=== PATIENT | female | born 1995 | race Caucasian/White ===

== ENCOUNTER → 2016-08-11 | Day surgery (SDC) | payer BC ==
[~2016-08-11] MED LIST: IBUP-103 PO
--- NOTE | 2016-08-11 13:38 | DIAGNOSTIC IMAGING REPORT ---
Ultrasound-guided fine-needle aspiration of the thyroid GUIDANCE NEEDLE PLACEMENT CLINICAL HISTORY: THYROID NODULE thyroid mass TECHNIQUE: Fine-needle aspiration under ultrasound guidance COMPARISON STUDY: 12/26/2015 FINDINGS: Dominant mass in the right thyroid was localized. This is followed by 2 passes with a 25-gauge needle. There were no complications. Pathology indicated adequate specimen for diagnosis. IMPRESSION: Successful fine-needle aspiration of dominant right thyroid mass Electronically signed by: Dante Ribera M.D. 08/11/2016 1:37 PM Dictated Date/Time: 08/11/2016 1:35 PM
== END | disposition home or self-care (01) ==
LOC: C.ACU 12:35
PROVIDERS: ATTEND Internal Medicine Endocrinology, Diabetes & Metabolism
DX: C73 Malignant neoplasm of thyroid gland (principal)

== ENCOUNTER 2016-09-22 07:06 | Inpatient (IN) | payer BC ==
[2016-09-07 08:22] VITALS: BMI 24.0
--- NOTE | 2016-09-07 08:51 | PAT Medication Instructions ---
Service Date September 07, 2016. Current Home Medication List Ibuprofen Tab (Advil), 200-400 MG PO PRN Medication Instructions For Your Scheduled Surgery - Hold the following medications the morning of surgery: Ibuprofen Tab (Advil), 200-400 MG PO PRN Nothing to eat or drink after midnight If you have any questions please call us at [phone] or [phone] or [phone]
[2016-09-22] VITALS (8 sets, daily range): BP systolic 104–120; BP diastolic 65–77; PULSE 80–101; TEMP 36.5–37.1; O2SAT 96–99; Ht 180.3 cm; Wt 79.3 kg
[~2016-09-22] VITALS: Ht 180.3 cm; Wt 79.3 kg
[~2016-09-22 07:06] MED LIST changes: +CEFAZOLIN 2000 MG/60 ML D5W IV SCH; +LACTATED RINGER'S 1000ML 1,000 ML IV SCH
[2016-09-22] MEDS ORDERED: DEXAMETHASONE SOD INJ 4 MG/ML VIAL ONE (07:50)
[2016-09-22] MEDS ORDERED: LIDOCAINE HCL 2% 2 ML VIAL (20MG/ML) ONE (07:50)
[2016-09-22] MEDS ORDERED: ONDANSETRON INJ 2 MG/ML 2 ML VIAL ONE (07:50)
[2016-09-22] MEDS ORDERED: MIDAZOLAM HCL 1 MG/ML 2ML VIAL ONE (07:50)
[2016-09-22] MEDS ORDERED: PROPOFOL IV EMULSION 10 MG/ML 20 ML VIAL IV ONE (07:50)
[2016-09-22] MEDS ORDERED: FENTANYL CITRATE INJ 50 MCG/1 ML 2 ML VIAL ONE ×3 (07:51→10:49)
--- NOTE | 2016-09-22 08:45 | History & Physical Bridge Note ---
H&P Re-Evaluation Bridge Note: I have examined the patient, reviewed the History & Physical and in the interval since the performance of the History & Physical I have noted the following changes of clinical significance: No changes noted
[2016-09-22] MEDS ORDERED: THROMBIN 5000 UNITS KIT ONE (09:02)
[2016-09-22] MEDS ORDERED: BACITRACIN OINT 15 GM TUBE ONE (09:02)
[2016-09-22] MEDS ORDERED: LIDOCAINE/EPINEPHRINE 1% 20 ML VIAL ONE (09:02)
[2016-09-22] MEDS ORDERED: SURGICEL ABSORB HEMOSTAT 2IN X 14IN TOP ONE (10:03)
[2016-09-22] MEDS ORDERED: SUCCINYLCHOLINE CHLORIDE 20 MG/ML 10 ML VIAL IV ONE (10:47)
[2016-09-22] MEDS ORDERED: LACTATED RINGER'S 1000ML 1,000 ML IV SCH (12:42)
--- NOTE | 2016-09-22 12:42 | [facility] Operative Report ---
Operative Report Operative Date September 22, 2016. Pre-Operative Diagnosis Papillary Thyroid Cancer, Goiter Post-Operative Diagnosis SAME Procedure(s) Performed TOTAL THYROIDECTOMY Surgeon Dr Chan Quiñonez Oxyacetylene Welder Surgeon(s) Gilma Vieyra PA-C Estimated Blood Loss 100ml Findings VERY LARGE ~6CM RIGHT THYROID MASS MAINLY INVOLVING THE SUPERIOR ASPECT OF THE GLAND Specimens A: Right Thyroid Lobe, single stitch-Isthmus, double stitch-Superior Pole B. Left thyroid lobe, double stitch superior pole, single stitch isthmus I attest to the content of the Intraoperative Record and any orders documented therein. Any exceptions are noted below.
[2016-09-22] MEDS ORDERED: ONDANSETRON INJ 2 MG/ML 2 ML VIAL IV PRN ×2 (12:45→13:15)
[2016-09-22] MEDS ORDERED: HYDROCODONE/ACETAMOPHEN 5/325MG TAB PO PRN (12:45)
[2016-09-22] MEDS ORDERED: FLUMAZENIL 0.1 MG/1 ML 10 ML VIAL IV PRN (13:15)
[2016-09-22] MEDS ORDERED: EpHEDrine SULFATE INJ 50 MG/ML AMP IV PRN (13:15)
[2016-09-22] MEDS ORDERED: ATROPINE SULFATE 0.1 MG/ML 5ML SYR IV PRN (13:15)
[2016-09-22] MEDS ORDERED: NALOXONE HCL 0.4 MG/1 ML VIAL/CARP IV PRN (13:15)
[2016-09-22] MEDS ORDERED: PROMETHAZINE HCL INJ 12.5 MG in SODIUM CHLORIDE 0.9% 50ML 50 ML IV PRN (13:15)
[2016-09-22] MEDS: HYDROmorphone INJ 1 MG/ML SYR IV PRN ×3 (13:31→13:42)
--- NOTE | 2016-09-22 14:37 | Anesthesiology Progress Note ---
Anesthesia Post Op Note Date & Time September 22, 2016 at 14:37 Vital Signs Pain Intensity: 3 Vital Signs Past 12 Hours Date Time Temp Pulse Resp B/P Pulse Ox O2 Delivery O2 Flow Rate FiO2 09/22/16 14:22 93 16 95 09/22/16 14:22 93 16 09/22/16 14:21 130/74 09/22/16 14:17 116 16 09/22/16 14:17 116 16 96 09/22/16 14:16 133/75 09/22/16 14:12 99 17 96 09/22/16 14:12 99 17 09/22/16 14:11 130/74 09/22/16 14:07 102 16 95 09/22/16 14:07 101 16 09/22/16 14:06 130/74 09/22/16 14:03 99 17 09/22/16 14:03 101 17 95 09/22/16 14:01 135/77 09/22/16 13:58 99 17 95 09/22/16 13:58 100 17 09/22/16 13:57 36.7 09/22/16 13:57 99 18 95 09/22/16 13:57 100 18 09/22/16 13:56 131/73 09/22/16 13:52 103 19 95 09/22/16 13:52 102 19 09/22/16 13:51 135/74 09/22/16 13:47 112 25 96 09/22/16 13:47 114 25 09/22/16 13:46 134/76 09/22/16 13:42 114 17 96 09/22/16 13:42 115 17 09/22/16 13:41 138/76 09/22/16 13:37 105 19 09/22/16 13:37 105 19 99 09/22/16 13:36 134/78 09/22/16 13:32 114 16 09/22/16 13:32 114 16 99 09/22/16 13:31 134/72 09/22/16 13:27 124 20 09/22/16 13:27 122 20 99 09/22/16 13:26 133/74 09/22/16 13:22 118 16 09/22/16 13:22 118 16 99 09/22/16 13:21 137/73 09/22/16 13:17 116 19 09/22/16 13:17 117 19 99 09/22/16 13:16 129/70 09/22/16 13:13 124/69 09/22/16 13:12 131 22 09/22/16 13:12 36.9 120 14 127/69 99 Mask 10 09/22/16 13:12 130 22 99 09/22/16 07:44 36.7 81 16 111/69 99 Room Air Notes Mental Status: alert / awake / arousable, participated in evaluation Pt Amnestic to Procedure: Yes Nausea / Vomiting: adequately controlled Pain: adequately controlled Airway Patency, RR, SpO2: stable & adequate BP & HR: stable & adequate Hydration State: stable & adequate Anesthetic Complications: no major complications apparent
--- NOTE | 2016-09-22 16:02 | OPERATIVE REPORT ---
DATE OF OPERATION: 09/22/2016 PREOPERATIVE DIAGNOSIS: Right papillary thyroid carcinoma. POSTOPERATIVE DIAGNOSIS: Right papillary thyroid carcinoma. PROCEDURE: Total thyroidectomy. SURGEON: Dr. Quiñonez. WORKFORCE DEVELOPMENT SPECIALIST: Gilma Vieyra PA-C. ESTIMATED BLOOD LOSS: 100 mL. ANESTHESIA: General endotracheal with nerve integrity monitor endotracheal tube. FINDINGS: 1. Very large approximately 6-cm right upper pole thyroid mass consistent with papillary thyroid carcinoma. 2. 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 SPECIMENS: Right and left thyroid lobe sent separately for permanent pathological assessment. DRAINS: None. COMPLICATIONS: None. INDICATIONS FOR THE PROCEDURE: The patient is a 21-year-old female who has a large right thyroid nodule, for which she underwent fine needle aspiration biopsy with findings consistent with papillary thyroid carcinoma. On examination as well as on her ultrasound, there was no evidence of cervical lymphadenopathy. She presents for the above-mentioned procedure on inpatient elective basis. DESCRIPTION OF PROCEDURE: After informed consent had been obtained from the patient, the patient was wheeled to the operating room and placed on the operating table in the supine position. Monitors were placed. After induction of general endotracheal anesthesia with a nerve integrity monitor endotracheal tube, the patient's head and neck were gently extended and a marking pen was used to outline the planned 8 cm incision in a natural skin crease 2 fingerbreadths above the level of clavicles. A total of 3 mL of 1% lidocaine with 1:100,000 epinephrine was used to inject the skin and subcutaneous tissues overlying the planned incision site. The skin in the neck and chest were then prepped and draped in the usual sterile fashion. A #15 scalpel was then used to make an incision through the skin, subcutaneous tissue, and platysma. Subplatysmal flaps were raised superiorly to the level of the thyroid notch and inferiorly to the level of clavicles. The median raphe of the strap muscles was identified and divided using Bovie electrocautery. Of note, the strap muscles were asymmetric in that the trachea was quite deviated to the left hand side. Because of the enormity of the thyroid gland, the strap muscles were divided transversely using a Harmonic scalpel both on the right and the left side. The right side was first addressed. The middle thyroid vein as well as superior and inferior thyroid vascular pedicles were divided adjacent to the thyroid capsule using a Harmonic scalpel. Dissection was carried lateral to medial with care to identify and preserve the right recurrent laryngeal nerve as well as superior and inferior parathyroid candidates. Of note, the recurrent laryngeal nerve on the right hand side was quite small and densely adherent to the undersurface of the thyroid gland at the area of the mass. Also, the right superior laryngeal nerve appeared to be densely adherent to the superior aspect of the right thyroid mass. Care was taken to preserve both nerves. There was not much of an isthmus and it was decided to divide the thyroid gland at the isthmus using Harmonic scalpel. The orienting sutures were placed on the right thyroid lobectomy specimen, which was sent off for permanent pathologic assessment. The left side was then addressed in a similar fashion. On this side, the thyroid lobe was quite small with only a very small nodule on the superficial surface of the left inferior aspect. Care was taken to identify and preserve the left recurrent laryngeal nerve as well as superior and inferior parathyroid candidates. The left recurrent laryngeal nerve was larger than the right hand side. Both nerves stimulated to confirm their identification. Orienting sutures were placed on the left thyroid lobectomy specimen, which was sent off for permanent pathological assessment. The wound was then copiously irrigated and then suctioned. Bipolar electrocautery was used to achieve adequate hemostasis. Hemostasis was confirmed with a Valsalva maneuver. Small pieces of Surgicel followed by topical spray thrombin were then placed into the bilateral tracheoesophageal grooves for added hemostatic effect. The divided strap muscle was then reapproximated using several simple interrupted 3-0 Vicryl sutures. The strap muscles were then reapproximated in the midline using a simple running interlocked 3-0 Vicryl suture. The platysma was then closed with several deep 4-0 Monocryl sutures. The skin was then closed with a simple running subcuticular 5-0 Monocryl suture. The incision was cleansed and dried. Dermabond was applied to the incision. This marked the end of the case. The patient tolerated the procedure well. There were no apparent complications. The patient was extubated and transferred to recovery room in stable condition. I attest to the content of the Intraoperative Record and any orders documented therein. Any exceptio ns are noted below.
[2016-09-22 18:49] LABS: CALCIUM 8.7 mg/dl (8.5-10.1); MAGNESIUM 1.8 mg/dl (1.8-2.4); PHOSPHORUS 3.3 mg/dl (2.5-4.9)
[2016-09-22] MEDS ORDERED: NURSING DECISION MEDICATION ORDER SCH (22:00)
[2016-09-23 01:08] LABS: CALCIUM 8.4 mg/dl (8.5-10.1); MAGNESIUM 1.8 mg/dl (1.8-2.4); PHOSPHORUS 3.4 mg/dl (2.5-4.9)
[2016-09-23 04:00] VITALS: BP 106/69; PULSE 68; TEMP 36.7; O2SAT 97
[2016-09-23] MEDS ORDERED: LEVOTHYROXINE 125 MCG TAB PO SCH (06:00)
[2016-09-23] MEDS ORDERED: LEVOTHYROXINE 25 MCG TAB PO SCH (06:00)
[2016-09-23 06:51] LABS: CALCIUM 8.2 mg/dl (8.5-10.1)
[2016-09-23 07:17] VITALS: BP 101/65; PULSE 68; TEMP 37; O2SAT 95
[2016-09-23 07:35] LABS: PHOSPHORUS 4.7 mg/dl (2.5-4.9)
--- NOTE | 2016-09-23 07:41 | ENT PROGRESS NOTE ---
DATE: 09/23/2016 ENT PROGRESS NOTE The patient is postoperative day #1 status post total thyroidectomy for right papillary thyroid carcinoma. The patient denies any perioral or digital numbness or paresthesias. She denies any muscle cramps or spasms. She has been doing well postoperatively thus far. She is afebrile and her vital signs are stable. On examination, she has a normal voice. Her thyroidectomy incision is clean, dry and intact with Dermabond in place and no evidence of hematoma. LABORATORY EXAMINATION: Reveals calcium of 8.7 yesterday at 6:00 p.m. which decreased to 8.4 at midnight without a concomitant significant rise in phosphorus. Her albumin did lower and so therefore we felt the mildly low calcium may be due to hypoalbuminemia. She denies any symptoms of hypocalcemia. The patient has laboratory examinations at 6:00 a.m. that are still pending. If these show no significant drop in her calcium and then I would likely discharge her home later today without calcium or vitamin D supplementation.
--- NOTE | 2016-09-23 08:03 | Anesthesiology Progress Note ---
Anesthesia Post Op Note Date & Time September 23, 2016 at 08:03 Vital Signs Pain Intensity: 0.0 Vital Signs Past 12 Hours Date Time Temp Pulse Resp B/P Pulse Ox O2 Delivery O2 Flow Rate FiO2 09/23/16 07:17 37.0 68 16 101/65 95 Room Air 09/23/16 04:00 36.7 68 16 106/69 97 Room Air 09/22/16 23:40 36.7 85 16 104/65 99 Room Air Notes Mental Status: alert / awake / arousable, participated in evaluation Pt Amnestic to Procedure: Yes Nausea / Vomiting: adequately controlled Pain: adequately controlled Airway Patency, RR, SpO2: stable & adequate BP & HR: stable & adequate Hydration State: stable & adequate Anesthetic Complications: no major complications apparent
[2016-09-23] MEDS: CALCIUM 600MG + VIT D 400 IU TAB PO SCH ×2 (08:20→11:54)
[2016-09-23 12:05] VITALS: BP 110/70; PULSE 62; TEMP 37.1; O2SAT 98
[2016-09-23 12:40] LABS: CALCIUM 8.8 mg/dl (8.5-10.1); MAGNESIUM 2.2 mg/dl (1.8-2.4); PHOSPHORUS 3.7 mg/dl (2.5-4.9)
--- NOTE | 2016-09-23 12:54 | Discharge Instructions ---
Discharge Instructions Date of Service September 23, 2016. Admission Reason for Admission: Papillary Thyroid Carcinoma Discharge Discharge Diagnosis / Problem: SAME Discharge Goals Goal(s): Therapeutic intervention Activity Recommendations Activity Limitations: per Instructions/Follow-up section . Current Hospital Diet Patient's current hospital diet: Regular Diet Discharge Diet Recommended Diet: Regular Diet Procedures Procedures Performed: Total Thyroidectomy Pending Studies Studies pending at discharge: no Medical Emergencies . Who to Call and When: Medical Emergencies: If at any time you feel your situation is an emergency, please call 911 immediately. . Non-Emergent Contact Non-Emergency issues call your: Surgeon . . "Provider Documentation" section prepared by Chan Quiñonez. . VTE Core Measure Inpt VTE Proph given/why not?: SCD's
[2016-09-23 13:08] VITALS: BP 110/70; PULSE 62; TEMP 37.1; O2SAT 98
--- NOTE | 2016-09-23 15:56 | DISCHARGE SUMMARY ---
OTOLARYNGOLOGY, HEAD AND NECK SURGERY DISCHARGE SUMMARY HOSPITAL COURSE: The patient is a 21-year-old female with a large right thyroid nodule measuring approximately 6.5 cm, for which a fine needle aspiration biopsy unfortunately revealed papillary thyroid carcinoma. She underwent total thyroidectomy on 09/22/2016 when intraoperative findings of a very large right thyroid nodule with extension superiorly and primarily involving the upper lobe. She also had severe tracheal deviation to the left. She did well postoperatively with no voice or swallowing problems. She did have mild hypocalcemia, for which Os-Kade D was started and for which she should take Os-Kade D two pills by mouth twice daily for 1 week followed by 2 pills once daily for 1 week. She should call my office if she develops any numbness or tingling around her lips, fingers, or toes. She should call my office if she develops any involuntary muscle spasms or cramps. She was given prescriptions for [place] 5/325 mg 1 to 2 tablets p.o. q. 4 hours p.r.n. for pain with 40 tablets given. She was given a prescription for Synthroid 125 mcg daily. She has a followup appointment in my office next Tuesday. She should keep her incision dry for 1 week and keep eyes on her neck as much as possible for 1 week as well.
== END 2016-09-23 14:00 | disposition home or self-care (01) | DRG 627 ==
LOC: ENRESERVDT → ENRESERVTM → C.ACU 07:06 → C.MSW 12:46
PROC: 0GTK0ZZ Resection of Thyroid Gland, Open Approach (ICD-10-PCS; principal; 2016-09-22 08:45)
DX: C73 Malignant neoplasm of thyroid gland (principal); J39.8 Other specified diseases of upper respiratory tract; E83.51 Hypocalcemia; E88.09 Other disorders of plasma-protein metabolism, not elsewhere classified

== ENCOUNTER → 2016-09-29 | Outpatient (CLI) | payer BC | END | disposition home or self-care (01) | LOC: C.LAB 13:57 | DX: J38.01 Paralysis of vocal cords and larynx, unilateral (principal) ==

== ENCOUNTER → 2016-09-30 | Outpatient (CLI) | payer BC ==
[2016-09-30 10:39] LABS: THYROID STIMULATING HORMONE 5.64 uIu/ml (0.300-4.500)
== END | disposition home or self-care (01) ==
LOC: C.LAB 08:17
PROVIDERS: ATTEND Internal Medicine Endocrinology, Diabetes & Metabolism
DX: C73 Malignant neoplasm of thyroid gland (principal)

== ENCOUNTER → 2016-11-11 | Outpatient (CLI) | payer BC ==
[2016-11-11 13:08] LABS: THYROID STIMULATING HORMONE 1.03 uIu/ml (0.300-4.500)
== END | disposition home or self-care (01) ==
LOC: C.LAB 10:17
PROVIDERS: ATTEND Internal Medicine Endocrinology, Diabetes & Metabolism
DX: C73 Malignant neoplasm of thyroid gland (principal); E83.51 Hypocalcemia

== ENCOUNTER → 2016-12-28 | Outpatient (CLI) | payer BC ==
[2016-12-28 16:58] LABS: THYROID STIMULATING HORMONE 0.013 uIu/ml (0.300-4.500)
== END | disposition home or self-care (01) ==
LOC: C.LAB 15:15
PROVIDERS: ATTEND Internal Medicine Endocrinology, Diabetes & Metabolism
DX: E89.0 Postprocedural hypothyroidism (principal)

== ENCOUNTER → 2017-03-16 | Outpatient (CLI) | payer BC | END | disposition home or self-care (01) | LOC: C.LAB 15:36 | PROVIDERS: ATTEND Internal Medicine Endocrinology, Diabetes & Metabolism | DX: E55.9 Vitamin D deficiency, unspecified (principal) ==

== ENCOUNTER → 2017-05-23 | Outpatient (CLI) | payer BC | END | disposition home or self-care (01) | LOC: C.LAB 11:09 | PROVIDERS: ATTEND Internal Medicine Endocrinology, Diabetes & Metabolism | DX: C73 Malignant neoplasm of thyroid gland (principal); E89.0 Postprocedural hypothyroidism ==

== ENCOUNTER 2017-06-03 00:16 | Emergency (ER) | payer BC ==
[~2017-06-03] VITALS: Ht 180.3 cm; Wt 80.3 kg
[2017-06-03 00:21] VITALS: TEMP 36.4; Ht 180.3 cm; Wt 80.3 kg
[2017-06-03 00:47] VITALS: O2SAT 98
[2017-06-03 01:12] LABS: HEMOGLOBIN 14.6 g/dL (12.0-16.0); MEAN CELL VOLUME 86.3 fL (80-100); MEAN CORPUSCULAR HEMOGLOBIN 30.7 pg (25-34); MEAN CORPUSCULAR HGB CONC 35.6 g/dl (32-36); MEAN PLATELET VOLUME 10.6 fL (7.4-10.4); PLATELET COUNT 209 K/uL (130-400); RED CELL DISTRIBUTION WIDTH CV 11.9 % (11.5-14.5); RED CELL DISTRIBUTION WIDTH SD 37.7 fL (36.4-46.3); WHITE BLOOD COUNT 8.62 K/uL (4.8-10.8)
[2017-06-03 01:14] LABS: INFLUENZA B ANTIGEN Neg for Influ B (NEG)
[2017-06-03 01:17] LABS: INR 1.1 (0.9-1.1); PTT PATIENT 31.2 SECONDS (21.0-31.0)
[2017-06-03 01:23] LABS: ALBUMIN 4.3 gm/dl (3.4-5.0); CALCIUM 8.6 mg/dl (8.5-10.1); CREATININE 0.92 mg/dl (0.60-1.20); POTASSIUM 3.6 mmol/L (3.5-5.1)
[2017-06-03 01:34] LABS: TOTAL PROTEIN 7.7 gm/dl (6.4-8.2)
--- NOTE | 2017-06-03 02:59 | EMERGENCY ROOM VISIT NOTE ---
History First contact with patient: 00:27 Chief Complaint: OTHER COMPLAINT Stated Complaint: SHIVERING,COLD HANDS,FORGETFULNESS,LOW TEMP History of Present Illness The patient is a 22 year old female who presents to the Emergency Room with complaints of shivering, cold, forgetfulness and low temperature for the past day. Patient had a thyroidectomy done last year. She just finished taking T3. She states endocrinology informed her to eat a low iodine diet until her procedure with the radioactive iodine therapy June in [facility]. Patient states she took her temperature at home and was 35. Patient states she' s having difficulty concentrating. Patient denies chest pain, dyspnea, cough, congestion, abdominal pain, headache, earache. She is tolerate by mouth fluids and food. Patient is unsure the manager intensive care name. Patient is unsure the exact dose of T3 she was on. Review of Systems See HPI for pertinent positives & negatives. A total of 10 systems reviewed and were otherwise negative. Past Medical/Surgical History Surgical Problems: (1) S/P total thyroidectomy Social History Smoking Status: Never Smoker Smokeless Tobacco Use: No Drug Use: none Occupation Status: [employer] student Current/Historical Medications No Active Prescriptions or Reported Meds Physical Exam Vital Signs Date Time Temp Pulse Resp B/P (MAP) Pulse Ox O2 Delivery O2 Flow Rate FiO2 06/03/17 03:07 64 20 96/64 97 06/03/17 02:00 65 15 94/60 98 06/03/17 01:30 66 18 100/60 96 06/03/17 01:00 72 18 107/67 98 06/03/17 00:59 81 06/03/17 00:51 82 18 120/73 98 Room Air 06/03/17 00:47 98 Room Air 06/03/17 00:21 36.4 98 18 129/86 94 Room Air Physical Exam VITALS: Vitals are noted on the nurse's note and reviewed by myself. Vital signs stable. GENERAL: Pleasant female, in no acute distress, nondiaphoretic, well-developed well-nourished. SKIN: The skin was without rashes, erythema, edema, or bruising. There is no tenting of the skin. Capillary reflex less than 2 seconds. HEAD: Normocephalic atraumatic. EARS: External auditory canals clear, tympanic membranes pearly teran without erythema or effusion bilaterally. EYES: Pupils equal round and reactive to light and accommodation. Conjunctivae without injection, sclerae without icterus. Extraocular movements intact. NOSE: Patent, turbinates without inflammation or discharge. No sinus tenderness. MOUTH: Mucous membranes moist. Pharynx without erythema or exudate. Uvula midline. Airway patent. Tongue does not deviate. NECK: Supple without nuchal rigidity. No lymphadenopathy. Surgical thyroid scar intact without signs of infection. Cervical spine is nontender. No JVD. HEART: Regular rate and rhythm without murmurs gallops or rubs. LUNGS: Clear to auscultation bilaterally without wheezes, rales or rhonchi. No dullness to percussion. No retractions or accessory muscle use. ABDOMEN: Positive bowel sounds x 4. Normal tympanic percussion. Soft, nontender, without masses or organomegaly. Mckeon sign negative. No guarding or rebound tenderness. MUSCULOSKELETAL: No muscle atrophy, erythema, or edema noted. NEURO: Patient was alert and oriented to person place and time. Normal sensation to light and sharp touch. No focal neurological deficits. Medical Decision & Procedures Laboratory Results 06/03/17 00:40 Red Blood Count 4.75, Mean Corpuscular Volume 86.3, Mean Corpuscular Hemoglobin 30.7, Mean Corpuscular Hemoglobin Concent 35.6, Mean Platelet Volume 10.6 06/03/17 00:40 Test 06/03/17 00:00 06/03/17 00:40 06/03/17 00:50 Influenza Type A Antigen Neg for Influ A (NEG) Influenza Type B Antigen Neg for Influ B (NEG) White Blood Count 8.62 K/uL (4.8-10.8) Red Blood Count 4.75 M/uL (4.2-5.4) Hemoglobin 14.6 g/dL (12.0-16.0) Hematocrit 41.0 % (37-47) Mean Corpuscular Volume 86.3 fL (80-100) Mean Corpuscular Hemoglobin 30.7 pg (25-34) Mean Corpuscular Hemoglobin Concent 35.6 g/dl (32-36) Platelet Count 209 K/uL (130-400) Mean Platelet Volume 10.6 fL (7.4-10.4) RDW Standard Deviation 37.7 fL (36.4-46.3) RDW Coefficient of Variation 11.9 % (11.5-14.5) Neutrophils % (Manual) 35.7 % Lymphocytes % (Manual) 31.2 % Variant Lymphocytes % (manual) 29.4 % Eosinophils % (Manual) 2.8 % Basophils % (Manual) 0.9 % Neutrophils # (Manual) 3.08 K/uL (1.4-6.5) Total Absolute Neutrophils 3.08 K/uL (1.4-6.5) Lymphocytes # (Manual) 2.69 K/uL (1.2-3.4) Absolute Variant Lymphocytes 2.53 K/uL Total Absolute Lymphocytes 5.22 K/uL (1.2-3.4) Eosinophils # (Manual) 0.24 K/uL (0-0.5) Basophils # (Manual) 0.08 K/uL (0-0.2) Red Blood Cell Morphology Unremarkable Prothrombin Time 11.7 SECONDS (9.0-12.0) Prothromb Time International Ratio 1.1 (0.9-1.1) Activated Partial Thromboplast Time 31.2 SECONDS (21.0-31.0) Partial Thromboplastin Ratio 1.2 Urine Color YELLOW Urine Appearance CLOUDY (CLEAR) Urine pH 7.5 (4.5-7.5) Urine Specific [place] 1.016 (1.000-1.030) Urine Protein NEG (NEG) Urine Glucose (UA) NEG (NEG) Urine Ketones TRACE (NEG) Urine Occult Blood NEG (NEG) Urine Nitrite NEG (NEG) Urine Bilirubin NEG (NEG) Urine Urobilinogen NEG (NEG) Urine Leukocyte Esterase NEG (NEG) Urine WBC (Auto) 5-10 /hpf (0-5) Urine RBC (Auto) 0-4 /hpf (0-4) Urine Hyaline Casts (Auto) 1-5 /lpf (0-5) Urine Epithelial Cells (Auto) >30 /lpf (0-5) Urine Bacteria (Auto) 1+ (NEG) Urine Yeast (Auto) (NONE PRSENT) Anion Gap 6.0 mmol/L (3-11) Est Creatinine Clear Calc Drug Dose 107.1 ml/min Estimated GFR () 102.4 Estimated GFR (Non- 88.4 BUN/Creatinine Ratio 15.7 (10-20) Calcium Level 8.6 mg/dl (8.5-10.1) Magnesium Level 2.4 mg/dl (1.8-2.4) Total Bilirubin 0.4 mg/dl (0.2-1) Aspartate Amino Transf (AST/SGOT) 38 U/L (15-37) Alanine Aminotransferase (ALT/SGPT) 41 U/L (12-78) Alkaline Phosphatase 75 U/L (45-117) Total Protein 7.7 gm/dl (6.4-8.2) Albumin 4.3 gm/dl (3.4-5.0) Globulin 3.4 gm/dl (2.5-4.0) Albumin/Globulin Ratio 1.3 (0.9-2) Thyroid Stimulating Hormone (TSH) 50.900 uIu/ml (0.300-4.500) Free Thyroxine 0.10 ng/dl (0.80-1.60) Total Triiodothyronine < 0.10 ng/ml (0.60-1.81) Human Chorionic Gonadotropin, Qual NEG (NEG) Bedside Lactic Acid Venous 0.76 mmol/L (0.90-1.70) ED Course Prior records/ancillary studies reviewed and summarized above. Nursing notes reviewed. The patient's history was concerning for chills, difficulty concentrating and lightheadedness. Differential diagnosis: Etiologies such as thyroid problem, metabolic, infection, hypo/hyperglycemia, electrolyte abnormalities, cardiac sources, intracerebral event, toxicologic, neurologic, as well as others were entertained. Physical examination: As above. ER treatment provided: IV Lock On reassessment the patient felt better. Diagnostics interpretation by me: ECG: Normal sinus, poor baseline, normal intervals, no acute ST-T wave changes. Impression normal sinus rhythm interpreted by myself The labs revealed TSH 50. Negative lactic acid. Imaging studies: Chest x-ray with no acute consolidation, pneumothorax or free air per my interpretation Consultation: A consultation was placed with the manager intensive care at [facility] with no response for over an hour. Exam and history seem consistent with abnormality with the thyroid. This most likely is making her feel chilled. She was not hypothermic here. Stable vital signs. Patient was neurovascularly and neurologically intact. She is well- appearing. She requested to leave. I felt this is reasonable. We were waiting for well over an hour for responsive from [facility]. She is informed to call [facility] in the morning for follow up with her manager intensive care as she has a procedure scheduled next week. Patient was advised to return to the ER immediately for pain, low temperatures, high fevers, worsening signs or symptoms or as needed. Patient ambulated out of the ER without difficulties. By the evaluation outlined above emergent etiologies such as infection, electrolyte abnormalities, cardiac sources, intracerebral event, toxologic, neurologic, abnormalities blood glucose, metabolic, as well as others were deemed relatively unlikely. The pt informed about the findings as listed above. All questions were answered and pleased with the treatment. Return instructions were outlined and the patient was discharged in stable condition. Case reviewed with my attending Referral: The patient was referred back to her manager intensive care and primary care physician for follow-up in 2 to 3 days for a recheck of the current condition. Medical Decision As above Medication Reconcilliation Current Medication List: was personally reviewed by me Blood Pressure Screening Patient's blood pressure: Normal blood pressure Impression Primary Impression: Chills Additional Impression: Abnormal TSH Departure Information Dispostion Home / Self-Care Condition GOOD Prescriptions No Active Prescriptions or Reported Meds Referrals Kacey Denny M.D. (PCP) Patient Instructions My [facility] Additional Instructions Call your manager intensive care in the morning for follow-up. Let them know that you were in the ER last night. Ibuprofen(Motrin, Advil) may be used for fever or pain. Use 600mg every six hours as needed. Take with food. Avoid using more than 2400mg in a 24 hour period. Do not use 2400mg per day for more than three consecutive days without physician direction. Prolonged inappropriate use can lead to stomach upset or ulcers. (AND/OR) Acetaminophen(Tylenol) may be used for fever or pain. Use 1000mg every six hours as needed. Avoid using more than 3000mg in a 24 hour period. Rest and drink plenty of fluids as tolerated. Continue current medications. Avoid strenuous activities and anything that worsens your symptoms. Resume normal activities once your symptoms resolve. Return to the ER immediately for worsening or persistent difficulty concentrating, low temperature, abdominal pain, vomiting, fevers, chest pains, difficulty breathing, worsening of your condition, or as needed. Follow up with your manager intensive care in 2-3 days for a recheck of your current condition. Problem Qualifiers
[2017-06-03 03:07] VITALS: BP 96/64; PULSE 64; O2SAT 97
--- NOTE | 2017-06-03 06:41 | DIAGNOSTIC IMAGING REPORT ---
CHEST ONE VIEW PORTABLE CLINICAL HISTORY: Sepsis dyspnea COMPARISON STUDY: No previous studies for comparison. FINDINGS: The bones soft tissues and hemidiaphragms are normal. The cardiomediastinal silhouette is normal. The lungs are clear. The pulmonary vasculature is normal. IMPRESSION: Negative chest. The above report was generated using voice recognition software. It may contain grammatical, syntax or spelling errors. Electronically signed by: Dante Ribera M.D. 06/03/2017 6:40 AM Dictated Date/Time: 06/03/2017 6:38 AM
== END 2017-06-03 03:08 | disposition home or self-care (01) ==
LOC: C.EDB 00:18 → C.EDC 03:08
DX: R68.83 Chills (without fever) (principal); R94.6 Abnormal results of thyroid function studies

== ENCOUNTER → 2017-06-24 | Outpatient (CLI) | payer BC ==
--- NOTE | 2017-06-24 10:11 | DIAGNOSTIC IMAGING REPORT ---
SOFT TISS HEAD/NECK-THYROID CLINICAL HISTORY: 22 years-old Female presenting with PAPILLARY THYROID CARCINOMA, history of thyroidectomy. TECHNIQUE: Real-time grayscale and color Doppler ultrasound imaging of the thyroid and base of the neck was performed. COMPARISON: 12/26/2015. FINDINGS: Right thyroidectomy bed: 4 suspicious hypoechoic nodules in an adjacent to the right thyroidectomy bed. These are numerous below: 1. Superior heterogeneously hypoechoic nodule measuring 8 x 7 x 8 mm 2. Mid thyroidectomy bed multilobular hypoechoic nodule measuring 13 x 8 x 12 mm 3. Inferior heterogeneous nodule with hypoechoic and hyperechoic elements measuring 8 x 6 x 8 mm 4. Superior lateral to the thyroidectomy bed posterior to the common carotid artery is a multilobular hypoechoic 30 x 12 x 18 mm nodule Left thyroidectomy bed: Unremarkable. Cervical lymph nodes: Hypoechoic 19 x 9 x 12 mm mass in the submandibular region (level IIb), suspicious for a pathologically enlarged lymph node. A normal fatty hilum is not evident. IMPRESSION: 1. Surgical changes of thyroidectomy. 2. Multiple highly suspicious nodules in the right thyroidectomy bed as detailed above. 3. Pathologically enlarged level IIb lymph node, which is highly suspicious for lymph node metastases. The report will be called/faxed according to standard departmental protocol. Electronically signed by: David Cuevas M.D. 06/24/2017 10:09 AM Dictated Date/Time: 06/24/2017 10:06 AM
== END | disposition home or self-care (01) ==
LOC: C.ULTRBC 09:18
PROVIDERS: ATTEND Internal Medicine Endocrinology, Diabetes & Metabolism
DX: E89.0 Postprocedural hypothyroidism (principal); R59.9 Enlarged lymph nodes, unspecified; R93.8 Abnormal findings on diagnostic imaging of other specified body structures

== ENCOUNTER → 2017-06-27 | Outpatient (CLI) | payer BC ==
--- NOTE | 2017-06-27 11:10 | DIAGNOSTIC IMAGING REPORT ---
ULTRASOUND GUIDED FINE NEEDLE ASPIRATION OF 3 INDEX RIGHT CERVICAL LYMPH NODES CLINICAL HISTORY: Cervical lymphadenopathy. Papillary thyroid carcinoma. COMPARISON STUDY: Neck ultrasound June 24, 2017. PROCEDURE: Sonography of the neck demonstrated multiple right-sided cervical lymph nodes, including an index right level 2 lymph node, a 2.5 cm right level 6 lymph node and a 1.5 cm right level 6 lymph node. These lymph nodes were targeted for fine needle aspiration. Procedure, risks and benefits were discussed with the patient and informed written consent was obtained. The procedure was performed by Dr. Perkins following a timeout. Skin was prepped and draped in sterile fashion and local anesthesia was achieved with 1% lidocaine. Under direct ultrasound guidance, 2 25-gauge fine needle aspirations were performed within each lymph node. The samples were deemed preliminarily adequate by pathology. The patient tolerated the procedure well and no immediate complications were evident. IMPRESSION: Ultrasound guided fine needle aspiration of right level 2 cervical lymph node, 2.5 cm right level 6 lymph node and 1.5 cm right level 6 lymph node. Electronically signed by: Curtis Perkins M.D. 06/27/2017 11:09 AM Dictated Date/Time: 06/27/2017 11:06 AM
== END | disposition home or self-care (01) ==
LOC: C.ULTR 09:47
PROVIDERS: ATTEND Internal Medicine Endocrinology, Diabetes & Metabolism
DX: C73 Malignant neoplasm of thyroid gland (principal); E89.0 Postprocedural hypothyroidism; R59.0 Localized enlarged lymph nodes

== ENCOUNTER 2017-07-28 11:46 | Emergency (ER) | payer OTHER, BC ==
[~2017-07-28] VITALS: Ht 180.3 cm; Wt 78.0 kg
[2017-07-28 12:01] VITALS: TEMP 36.8; Ht 180.3 cm; Wt 78.0 kg
[2017-07-28] MEDS ORDERED: PRED10TA PO (12:13)
[2017-07-28] MEDS ORDERED: LEVO175T PO (12:13)
[2017-07-28] MEDS ORDERED: AMOX250C3 PO (12:13)
--- NOTE | 2017-07-28 13:05 | DIAGNOSTIC IMAGING REPORT ---
HEAD CT NONCONTRAST CT DOSE: 690.05 mGycm HISTORY: Head injury 1.5 weeks ago, possible loss of consciousness, persistent headache TECHNIQUE: Multiaxial CT images of the head were performed without the use of intravenous contrast. Automated exposure control was utilized for this study. A dose lowering technique was utilized adhering to the principles of ALARA. Comparison: None. Findings: The paranasal sinuses and mastoid air cells are clear. The calvarium and skull base are intact. The ventricles and sulci are within normal limits. There is no mass, hematoma, midline shift, or acute infarct. Impression: No acute intracranial abnormality. Electronically signed by: Jesse Marcelino M.D. 07/28/2017 1:04 PM Dictated Date/Time: 07/28/2017 12:57 PM
--- NOTE | 2017-07-28 13:29 | EMERGENCY ROOM VISIT NOTE ---
History First contact with patient: 12:12 Chief Complaint: HEAD INJURY (MINOR) Stated Complaint: HEADACHES - HIT HEAD OVER A WEEK AGO History of Present Illness The patient is a 22 year old female who presents to the Emergency Room via private vehicle referred by silvino nunez with complaints of "headache -"hit head over a week ago". The patient states that 1.5 weeks ago she was standing from a kneeling position and when she stood up she struck the top of her head off of the counter and then fell backwards. There was questionable loss of consciousness. She thought that the headache would dissipate however it is only persisted she states that her headache is better with the meds she is taking however it persists. It is not fully gone away. She was seen about [facility] today and referred over here today for potential CT of her head. The patient notes 2 different areas of head pain, first is in the frontal region and the second is at the region where she was struck. She denies any neck pain. There are no vision changes or vomiting. She denies chance of . Review of Systems A complete 6-point Review of Systems was discussed with the patient, with pertinent positives and negatives listed in the History of Present Illness. All remaining Review of Systems questions can be considered negative unless otherwise specified. Past Medical/Surgical History Surgical Problems: (1) S/P total thyroidectomy Family History No pertinent Social History Smoking Status: Never Smoker Drug Use: none Patient lives locally. Current/Historical Medications Scheduled Amoxicillin (Amoxil), Unknown Dose PO BID Levothyroxine Sodium (Synthroid), 175 MCG PO DAILY Prednisone (Prednisone), 0 PO UD Physical Exam Vital Signs Date Time Temp Pulse Resp B/P (MAP) Pulse Ox O2 Delivery O2 Flow Rate FiO2 07/28/17 13:38 61 18 104/62 97 07/28/17 12:38 18 07/28/17 12:01 36.8 84 20 115/77 95 Room Air Physical Exam VITAL SIGNS - Vital signs and nursing notes were reviewed. Stable. GENERAL -22-year-old female appearing her stated age who is in no acute distress. Communicates well with provider and answers questions appropriately. SKIN - Without rashes. No meningeal or petechial rashes. The skin overlying the head is unremarkable. HEAD - NC/AT. No marie signs or raccoon's eyes. EYES - PERRL with EOMI bilaterally. Sclera anicteric. No hyphema. EARS - No deformities of external structures noted on gross examination bilaterally. No hemotympanum. NOSE - Midline and without cyanosis. No epistaxis or purulent drainage noted. Septum midline without deviation or septal hematoma noted. MOUTH/OROPHARYNX - Without perioral cyanosis. No blood in the posterior pharynx. NECK - Neck with FROM. Supple to palpation. No C-spine tenderness EXTREMITIES - No clubbing or peripheral cyanosis. Excellent valve grinder strength. +5/ 5 strength noted in UE/LE bilaterally. NEUROLOGIC - Cranial nerves II through XII grossly intact. Sensory intact to light touch throughout. Patellar reflexes +2/4. PSYCH - A&O, and cooperates fully with examiner. Pt is very pleasant and interacts well with examiner. Medical Decision & Procedures ER Provider Diagnostic Interpretation: [~ rep ct add3]] HEAD CT NONCONTRAST CT DOSE: 690.05 mGycm HISTORY: Head injury 1.5 weeks ago, possible loss of consciousness, persistent headache TECHNIQUE: Multiaxial CT images of the head were performed without the use of intravenous contrast. Automated exposure control was utilized for this study. A dose lowering technique was utilized adhering to the principles of ALARA. Comparison: None. Findings: The paranasal sinuses and mastoid air cells are clear. The calvarium and skull base are intact. The ventricles and sulci are within normal limits. There is no mass, hematoma, midline shift, or acute infarct. Impression: No acute intracranial abnormality. Electronically signed by: Jesse Marcelino M.D. 07/28/2017 1:04 PM Dictated Date/Time: 07/28/2017 12:57 PM Medical Decision Patient was seen and evaluated as above. She presents to us today referred by [email or web address] following persistent headaches status post head injury. Review was performed of nursing notes and vital signs. After obtaining a thorough history and physical examination the above work up was performed. Benefit versus risk of obtaining CT scan was discussed. Decision was made to obtain a CT scan of her head. This was obtained. She has a GCS of 15. No acute fracture, dislocation or bleed. I suspect she likely has a concussion. There is also likely contusion overlying the spot where she struck her head. She notes she does not have a family doctor but feels comfortable requiring one. She is to return with worsening. The patient was educated upon management, had questions answered prior to discharge, and was discharged home in good condition. Imaging as interpreted by myself and the radiologist revealed no acute hemorrhage within the head, with radiologist interpretation as above. I agree with the radiologist's findings as based upon my independent interpretation. In the evaluation and treatment of this patient, the following differential diagnoses were considered: Concussion, Contrecoup Injury, Brain Tumor, Depression, Encephalitis, Hypothyroidism, Meningitis, CVA, TIA, Migraine, Cluster Headache, Intracranial Abnormality, Intracranial Hemorrhage, Subdural Hematoma, Subarachnoid Hemorrhage, Hydrocephalus. Impression Primary Impression: Closed head injury Additional Impression: Concussion Departure Information Dispostion Home / Self-Care Condition GOOD Referrals No Doctor, Assigned (PCP) Patient Instructions ED Concussion, My [facility] Additional Instructions You have been treated in the Emergency Department for a Closed Head Injury. CT Scan of your head/brain demonstrated no acute bleeding or other abnormalities. This does not completely rule out the risk for future damage to the brain. You likely are experiencing a concussion For pain control, you can use the following [id number] medicines: - Regular strength (325mg/tab) Tylenol (acetaminophen) 2 tabs every 4-6 hours as needed. Do not exceed 12 tablets in a 24 hour period. Avoid taking more than 3 grams (3000 mg) of Tylenol per day. This includes any other sources of acetaminophen you may take on a regular basis. - Regular strength (200 mg/tab) Advil (ibuprofen) 1-2 tabs every 4-6 hours as needed. Do not exceed a dose of 3200 mg per day. You should relax in a quiet, dark place for the rest of the day. Avoid any possible triggers including: cigarette smoke, caffeine, nicotine, chocolate, wine, beer, loud noises or music, or bright lights. You should schedule a follow-up appointment in 2-3 days with your Primary Care Provider for further evaluation and treatment of your Headache. (please call to establish) Return to the Emergency Department if your current symptoms worsen despite treatment course outlined above, or if you develop any of the following symptoms : intractable pain despite aforementioned treatment course, visual disturbances , loss of vision, unilateral weakness or facial drooping, slurring of speech, loss of coordination, or loss of consciousness. Problem Qualifiers
[2017-07-28 13:38] VITALS: BP 104/62; PULSE 61; O2SAT 97
== END 2017-07-28 13:35 | disposition home or self-care (01) ==
LOC: C.EDB 11:47 → C.EDD 13:35
DX: S09.90XA Unspecified injury of head, initial encounter (principal); S06.0X0A Concussion without loss of consciousness, initial encounter; W22.8XXA Striking against or struck by other objects, initial encounter

== ENCOUNTER 2017-09-21 12:19 | Emergency (ER) | payer BC, OTHER ==
[~2017-09-21] VITALS: Ht 180.3 cm; Wt 77.0 kg
[~2017-09-21 12:19] MED LIST changes: +AMOX250C3 PO; -CEFAZOLIN 2000 MG/60 ML D5W IV SCH; -IBUP-103 PO; -LACTATED RINGER'S 1000ML 1,000 ML IV SCH; +LEVO175T PO; +PRED10TA PO
[2017-09-21 12:22] VITALS: TEMP 36.6; Ht 180.3 cm; Wt 77.0 kg
[2017-09-21 13:26] LABS: BASO % 0.3 %; BASO ABS # 0.01 K/uL (0-0.2); EOS ABS # 0.07 K/uL (0-0.5); HEMATOCRIT 38.9 % (37-47); HEMOGLOBIN 13.8 g/dL (12.0-16.0); IG# 0.01 K/uL (0.00-0.02); LYMPH % 21.8 %; LYMPH ABS # 0.78 K/uL (1.2-3.4); MEAN CELL VOLUME 86.8 fL (80-100); MEAN CORPUSCULAR HEMOGLOBIN 30.8 pg (25-34); MEAN CORPUSCULAR HGB CONC 35.5 g/dl (32-36); MEAN PLATELET VOLUME 10.1 fL (7.4-10.4); MONO % 14.8 %; MONO ABS # 0.53 K/uL (0.11-0.59); NEUT % 60.8 %; NEUT ABS # 2.18 K/uL (1.4-6.5); PLATELET COUNT 150 K/uL (130-400); RED CELL DISTRIBUTION WIDTH SD 37.8 fL (36.4-46.3); WHITE BLOOD COUNT 3.58 K/uL (4.8-10.8)
[2017-09-21 13:43] LABS: CALCIUM 9.3 mg/dl (8.5-10.1); CREATININE 0.82 mg/dl (0.60-1.20); POTASSIUM 3.6 mmol/L (3.5-5.1)
--- NOTE | 2017-09-21 15:44 | DIAGNOSTIC IMAGING REPORT ---
RIGHT PERIMANDIBULAR SOFT TISSUE ULTRASOUND CLINICAL HISTORY: Right jaw pain and swelling COMPARISON STUDY: Thyroid ultrasound dated 06/24/2017 FINDINGS: No masses were identified in the area of clinical concern. Note is made of a lymph node within the right superior neck measuring 18 x 10 x 19 mm. This demonstrates a mildly thickened cortex. IMPRESSION: 1. Right superior neck node which may be pathologic as it demonstrates a thickened cortex 2. No pathologic masses are visible ultrasonographically to correlate with the area of reported soft tissue swelling Electronically signed by: Morgan Real M.D. 09/21/2017 3:42 PM Dictated Date/Time: 09/21/2017 3:40 PM
[2017-09-21 16:00] VITALS: BP 97/58; PULSE 70; O2SAT 100
--- NOTE | 2017-09-21 18:14 | EMERGENCY ROOM VISIT NOTE ---
History Report prepared by Aranza: Cody Rojas Under the Supervision of: Dr. Hansel Phan D.O. First contact with patient: 12:27 Chief Complaint: OTHER COMPLAINT Stated Complaint: JAW SWOLLEN AND PAINFUL History of Present Illness The patient is a 22 year old female with a history of thyroid cancer who presents to the Emergency Room with complaints of worsening right-sided jaw swelling and pain today. She states that she had 39 lymph nodes resected from the right side of her neck at [facility] less than a month ago. The patient called her doctor today and was told to come here to get blood work done to rule-out infection. She says that her jaw pain is constant, and movement worsens the pain. She rates her pain as a 6 out of 10 in severity. The patient says that her thyroid was removed last year. The patient denies any fevers, cough, ear pain, sore throat, chest pain, shortness of breath, nausea, vomiting, or pain or burning with urination. Source of History: patient Onset: Today Position: jaw (right) Symptom Intensity: 6/10 pain Quality: other (swelling and pain) Timing: worsening Modifying Factors (Worsening): movement Associated Symptoms: No fevers, No cough, No chest pain, No SOB, No nausea, No vomiting, No urinary symptoms Note: Denies ear pain. Review of Systems See HPI for pertinent positives & negatives. A total of 10 systems reviewed and were otherwise negative. Past Medical & Surgical Surgical Problems: (1) S/P total thyroidectomy Family History Cancer Heart disease Hypertension Social History Smoking Status: Never Smoker Drug Use: none Marital Status: single Occupation Status: employed Current/Historical Medications Scheduled Levothyroxine Sodium (Synthroid), 175 MCG PO DAILY Allergies Coded Allergies: No Known Allergies (Unverified , 09/21/17) Physical Exam Vital Signs Date Time Temp Pulse Resp B/P (MAP) Pulse Ox O2 Delivery O2 Flow Rate FiO2 09/21/17 16:00 70 18 97/58 100 09/21/17 15:45 70 18 97/58 100 Room Air 09/21/17 12:22 36.6 96 16 110/77 99 Room Air Physical Exam GENERAL: Sitting up in bed, alert, well appearing, well nourished, no distress, non-toxic EYE EXAM: normal conjunctiva. OROPHARYNX: no exudate, no erythema, lips, buccal mucosa, and tongue normal and mucous membranes are moist NECK: Mild swelling at angle of right mandible tracing distally down neck about 2 inches. LUNGS: Clear to auscultation. Normal chest wall mechanics HEART: no murmurs, S1 normal and S2 normal ABDOMEN: abdomen soft, non-tender, normo-active bowel sounds, no masses, no rebound or guarding. SKIN: no rashes and no bruising UPPER EXTREMITIES: upper extremities are grossly normal. LOWER EXTREMITIES: No pitting edema. NEURO EXAM: Normal sensorium, cranial nerves II-XII grossly intact, normal speech, no gross weakness of arms, no gross weakness of legs. Medical Decision & Procedures ER Provider Diagnostic Interpretation: US results as stated below per my review and the radiologist's interpretation: RIGHT PERIMANDIBULAR SOFT TISSUE ULTRASOUND CLINICAL HISTORY: Right jaw pain and swelling COMPARISON STUDY: Thyroid ultrasound dated 06/24/2017 FINDINGS: No masses were identified in the area of clinical concern. Note is made of a lymph node within the right superior neck measuring 18 x 10 x 19 mm. This demonstrates a mildly thickened cortex. IMPRESSION: 1. Right superior neck node which may be pathologic as it demonstrates a thickened cortex 2. No pathologic masses are visible ultrasonographically to correlate with the area of reported soft tissue swelling Electronically signed by: Morgan Real M.D. 09/21/2017 3:42 PM Dictated Date/Time: 09/21/2017 3:40 PM Laboratory Results 09/21/17 13:15 Red Blood Count 4.48, Mean Corpuscular Volume 86.8, Mean Corpuscular Hemoglobin 30.8, Mean Corpuscular Hemoglobin Concent 35.5, Mean Platelet Volume 10.1, Neutrophils (%) (Auto) 60.8, Lymphocytes (%) (Auto) 21.8, Monocytes (%) (Auto) 14.8, Eosinophils (%) (Auto) 2.0, Basophils (%) (Auto) 0.3, Neutrophils # (Auto ) 2.18, Lymphocytes # (Auto) 0.78, Monocytes # (Auto) 0.53, Eosinophils # (Auto ) 0.07, Basophils # (Auto) 0.01 09/21/17 13:15 Test 09/21/17 13:15 White Blood Count 3.58 K/uL (4.8-10.8) Red Blood Count 4.48 M/uL (4.2-5.4) Hemoglobin 13.8 g/dL (12.0-16.0) Hematocrit 38.9 % (37-47) Mean Corpuscular Volume 86.8 fL (80-100) Mean Corpuscular Hemoglobin 30.8 pg (25-34) Mean Corpuscular Hemoglobin Concent 35.5 g/dl (32-36) Platelet Count 150 K/uL (130-400) Mean Platelet Volume 10.1 fL (7.4-10.4) Neutrophils (%) (Auto) 60.8 % Lymphocytes (%) (Auto) 21.8 % Monocytes (%) (Auto) 14.8 % Eosinophils (%) (Auto) 2.0 % Basophils (%) (Auto) 0.3 % Neutrophils # (Auto) 2.18 K/uL (1.4-6.5) Lymphocytes # (Auto) 0.78 K/uL (1.2-3.4) Monocytes # (Auto) 0.53 K/uL (0.11-0.59) Eosinophils # (Auto) 0.07 K/uL (0-0.5) Basophils # (Auto) 0.01 K/uL (0-0.2) RDW Standard Deviation 37.8 fL (36.4-46.3) RDW Coefficient of Variation 12.0 % (11.5-14.5) Immature Granulocyte % (Auto) 0.3 % Immature Granulocyte # (Auto) 0.01 K/uL (0.00-0.02) Anion Gap 3.0 mmol/L (3-11) Est Creatinine Clear Calc Drug Dose 120.2 ml/min Estimated GFR () 117.7 Estimated GFR (Non- 101.6 BUN/Creatinine Ratio 11.3 (10-20) Calcium Level 9.3 mg/dl (8.5-10.1) Laboratory results per my review. ED Course ED COURSE: Vital signs were reviewed and showed normal vitals. The patients medical record was reviewed The above diagnostic studies were performed and reviewed. ED treatments and interventions as stated above. 1231: The patient was evaluated in room A12B. A complete history and physical examination was performed. 1553: Upon reevaluation, the patient is resting. I discussed my findings with the patient and she understands and agrees with the treatment plan. Based on the patients age, coexisting illnesses, exam and lab findings the decision to treat as an outpatient was made. The patient remained stable while under my care. The patient appeared well at the time of discharge. Medical Decision Differential diagnosis includes: infection, cellulitis, abscess, lymphadenopathy. Patient is a 22-year-old female who presents the ER for swelling on the right side of her neck. She notes that she had thyroid cancer and resection of lymph nodes on the right neck. CBC showed a mild leukopenia at 3.6. BMP was unremarkable. Ultrasound showed right superior neck lymph node which the favors pathologic as there is a thickened cortex. Updated patient in regards to these findings. She is discharged follow-up with her surgeon as an outpatient. Discussed with Pt concerning signs and symptoms to watch out for. Pt was instructed to follow up with their PCP and discussed with the patient their option to return to the ED at anytime for persistent or worsening symptoms. The appropriate anticipatory guidance and out-patient management, including indications for return to the emergency department, were explained at length to the patient and understood. Medication Reconcilliation Current Medication List: was personally reviewed by me Blood Pressure Screening Patient's blood pressure: Normal blood pressure Impression Primary Impression: Lymph node enlargement Scribe Attestation The scribe's documentation has been prepared under my direction and personally reviewed by me in its entirety. I confirm that the note above accurately reflects all work, treatment, procedures, and medical decision making performed by me. Departure Information Dispostion Home / Self-Care Referrals No Doctor, Assigned (PCP) Patient Instructions Lymphadenopathy, My [facility] Additional Instructions Please follow up with your primary care doctor with in the next 24 hours. Any worsening of your symptoms, please return to the ED immediately. This includes any fevers greater than 100.4, worsening pain, chest pain, shortness breath, persistent nausea, vomiting, unable to eat or drink, or any other concerning signs or symptoms from your standpoint. Your found to have a swollen right lymph node within your neck with an irregular cortex. This should be followed up on by you surgeon.
== END 2017-09-21 15:59 | disposition home or self-care (01) ==
LOC: C.EDB 12:20 → C.EDA 15:59
DX: R59.0 Localized enlarged lymph nodes (principal); E89.0 Postprocedural hypothyroidism; Z85.850 Personal history of malignant neoplasm of thyroid

== ENCOUNTER 2017-12-11 18:48 | Emergency (ER) | payer BC ==
[~2017-12-11] VITALS: Ht 180.3 cm; Wt 77.7 kg
[~2017-12-11 18:48] MED LIST changes: -AMOX250C3 PO; -PRED10TA PO
[2017-12-11 18:51] VITALS: TEMP 36.7; Ht 180.3 cm; Wt 77.7 kg
[2017-12-11] MEDS ORDERED: SODIUM CHLORIDE 0.9% 1000ML 1,000 ML IV STA (18:54)
[2017-12-11] MEDS ORDERED: ONDANSETRON INJ 2 MG/ML 2 ML VIAL IV STA (19:00)
[2017-12-11] MEDS ORDERED: MoRPHine SULFATE 4 MG/ML 1 ML CARP\\VIAL IV STA (19:00)
[2017-12-11] MEDS ORDERED: OPTIRAY 320 IV PRN (19:15)
[2017-12-11 19:46] LABS: BASO % 0.2 %; BASO ABS # 0.01 K/uL (0-0.2); EOS % 4.2 %; HEMATOCRIT 37.8 % (37-47); HEMOGLOBIN 13.4 g/dL (12.0-16.0); IG# 0.01 K/uL (0.00-0.02); LYMPH % 44.1 %; LYMPH ABS # 2.12 K/uL (1.2-3.4); MEAN CELL VOLUME 84.8 fL (80-100); MEAN CORPUSCULAR HGB CONC 35.4 g/dl (32-36); MEAN PLATELET VOLUME 10.7 fL (7.4-10.4); MONO % 7.3 %; MONO ABS # 0.35 K/uL (0.11-0.59); NEUT ABS # 2.12 K/uL (1.4-6.5); PLATELET COUNT 164 K/uL (130-400); RED CELL DISTRIBUTION WIDTH CV 12.3 % (11.5-14.5); RED CELL DISTRIBUTION WIDTH SD 37.8 fL (36.4-46.3); WHITE BLOOD COUNT 4.81 K/uL (4.8-10.8)
[2017-12-11 20:09] LABS: ALBUMIN 3.8 gm/dl (3.4-5.0); CALCIUM 8.5 mg/dl (8.5-10.1); CREATININE 0.68 mg/dl (0.60-1.20); POTASSIUM 3.5 mmol/L (3.5-5.1); TOTAL PROTEIN 6.9 gm/dl (6.4-8.2)
--- NOTE | 2017-12-11 20:09 | DIAGNOSTIC IMAGING REPORT ---
ABDOMEN LIMITED (US) HISTORY: Pain Appy. COMPARISON: None. FINDINGS: Is not identified. IMPRESSION: Nondiagnostic exam. The appendix is not identified. The above report was generated using voice recognition software. It may contain grammatical, syntax or spelling errors. Electronically signed by: Dante Ribera M.D. 12/11/2017 8:08 PM Dictated Date/Time: 12/11/2017 8:07 PM
--- NOTE | 2017-12-11 20:11 | DIAGNOSTIC IMAGING REPORT ---
PELVIC COMPLETE NON OB CLINICAL HISTORY: RLQ abd pain, ovarian cyst COMPARISON STUDY: None FINDINGS: The uterus measured 2.1 cm. The endometrial stripe measured 8 mm. The right ovary measured 5 cm maximum dimension including a 2 cm ovarian cyst.. The left ovary measured not well seen due to overlying bowel content.. There is no ultrasonographic evidence of ovarian torsion. It should be noted that ovarian torsion can be present with normal Doppler ultrasonographic findings. There was no evidence of pathologic free pelvic fluid. IMPRESSION: 1. 2 cm right ovarian cyst. 2. Study is otherwise negative. The above report was generated using voice recognition software. It may contain grammatical, syntax or spelling errors. Electronically signed by: Dante Ribera M.D. 12/11/2017 8:09 PM Dictated Date/Time: 12/11/2017 8:08 PM
--- NOTE | 2017-12-11 21:40 | DIAGNOSTIC IMAGING REPORT ---
ABD/PELVIS IV AND ORAL CONT CT DOSE: 765.43 mGycm HISTORY: Pain RLQ abd pain, appy TECHNIQUE: Multiaxial CT images of the abdomen and pelvis were performed following the use of intravenous and oral contrast. A dose lowering technique was utilized adhering to the principles of ALARA. COMPARISON STUDY: None. FINDINGS: Lung bases are clear. Liver spleen and pancreas are unremarkable. Kidneys enhance uniformly. Upper abdominal bowel pattern is nonobstructive. The appendix is normal. There are 2 right ovarian cyst measuring up to 1.5 cm. Left ovary shows no enlargement. Bladder is midline. No free fluid within the pelvic cul-de-sac. IMPRESSION: 1. Normal appendix. 2. Nonobstructive bowel pattern. 3. Several small right ovarian follicular cyst measuring up to 1.5 cm. The above report was generated using voice recognition software. It may contain grammatical, syntax or spelling errors. Electronically signed by: Dante Ribera M.D. 12/11/2017 9:39 PM Dictated Date/Time: 12/11/2017 9:37 PM
[2017-12-11] MEDS ORDERED: KETOROLAC TROMETHAMINE 30 MG/ML VIAL IV STA (21:50)
[2017-12-11 22:14] VITALS: BP 116/87; PULSE 67; O2SAT 100
--- NOTE | 2017-12-12 00:18 | EMERGENCY ROOM VISIT NOTE ---
History First contact with patient: 18:53 Chief Complaint: ABDOMINAL PAIN Stated Complaint: RIGHT LOWER ABDOMINAL PAIN Nursing Triage Summary: RLQ pain starting a few hours [employer], no previous problems History of Present Illness The patient is a 22 year old female who presents to the Emergency Room with complaints of right lower quadrant abdominal pain that began after her nap this evening. Patient states she went to bed without any complaints but when she woke up he was experiencing discomfort. She has a history of thyroid cancer and was treated with radioactive iodine this last June. She is currently taking Synthroid. Patient has had 2 surgeries related to her thyroid. She denies any recent fevers, chills, chest pain or shortness of breath. She states her abdominal symptoms are worse with ambulation or significant movement. She denies any vomiting or diarrhea. She is 2 weeks post her last menstrual cycle. She denies any chance of . Review of Systems See HPI for pertinent positives & negatives. A total of 10 systems reviewed and were otherwise negative. Past Medical/Surgical History Surgical Problems: (1) S/P total thyroidectomy Family History Cancer Heart disease Hypertension Social History Smoking Status: Never Smoker Drug Use: none Marital Status: single Occupation Status: employed Current/Historical Medications Scheduled Levothyroxine Sodium (Synthroid), 175 MCG PO DAILY Physical Exam Vital Signs Date Time Temp Pulse Resp B/P (MAP) Pulse Ox O2 Delivery O2 Flow Rate FiO2 12/11/17 22:14 67 16 116/87 100 12/11/17 21:06 72 15 100 12/11/17 21:01 110/70 12/11/17 20:53 64 20 99 Room Air 12/11/17 20:31 110/73 12/11/17 20:23 59 16 100 12/11/17 19:23 67 17 100 12/11/17 19:18 70 20 99 Room Air 12/11/17 19:17 69 12/11/17 19:14 109/66 12/11/17 18:51 36.7 80 19 128/77 99 Room Air Physical Exam Vital signs reviewed. General: Well-appearing 22-year-old female, in no significant distress. HEENT: No scleral icterus, PERRLA, neck supple. Atraumatic. Cardiovascular: Regular rate and rhythm, no extra sounds. Pulmonary: Clear to auscultation bilaterally, normal work of breathing. Abdomen: Soft, tender to palpation in the right lower quadrant, no rebound, no guarding nondistended, positive bowel sounds. Musculoskeletal: Atraumatic, no peripheral edema. Neurologic: Patient awake alert and oriented x 3 Skin: Warm, dry, no rash Medical Decision & Procedures ER Provider Diagnostic Interpretation: ABDOMEN LIMITED (US) HISTORY: Pain Appy. COMPARISON: None. FINDINGS: Is not identified. IMPRESSION: Nondiagnostic exam. The appendix is not identified. The above report was generated using voice recognition software. It may contain grammatical, syntax or spelling errors. Electronically signed by: Dante Ribera M.D. 12/11/2017 8:08 PM Dictated Date/Time: 12/11/2017 8:07 PM PELVIC COMPLETE NON OB CLINICAL HISTORY: RLQ abd pain, ovarian cyst COMPARISON STUDY: None FINDINGS: The uterus measured 2.1 cm. The endometrial stripe measured 8 mm. The right ovary measured 5 cm maximum dimension including a 2 cm ovarian cyst.. The left ovary measured not well seen due to overlying bowel content.. There is no ultrasonographic evidence of ovarian torsion. It should be noted that ovarian torsion can be present with normal Doppler ultrasonographic findings. There was no evidence of pathologic free pelvic fluid. IMPRESSION: 1. 2 cm right ovarian cyst. 2. Study is otherwise negative. The above report was generated using voice recognition software. It may contain grammatical, syntax or spelling errors. Electronically signed by: Dante Ribera M.D. 12/11/2017 8:09 PM Dictated Date/Time: 12/11/2017 8:08 PM ABD/PELVIS IV AND ORAL CONT CT DOSE: 765.43 mGycm HISTORY: Pain RLQ abd pain, appy TECHNIQUE: Multiaxial CT images of the abdomen and pelvis were performed following the use of intravenous and oral contrast. A dose lowering technique was utilized adhering to the principles of ALARA. COMPARISON STUDY: None. FINDINGS: Lung bases are clear. Liver spleen and pancreas are unremarkable. Kidneys enhance uniformly. Upper abdominal bowel pattern is nonobstructive. The appendix is normal. There are 2 right ovarian cyst measuring up to 1.5 cm. Left ovary shows no enlargement. Bladder is midline. No free fluid within the pelvic cul-de-sac. IMPRESSION: 1. Normal appendix. 2. Nonobstructive bowel pattern. 3. Several small right ovarian follicular cyst measuring up to 1.5 cm. The above report was generated using voice recognition software. It may contain grammatical, syntax or spelling errors. Electronically signed by: Dante Ribera M.D. 12/11/2017 9:39 PM Dictated Date/Time: 12/11/2017 9:37 PM Laboratory Results 12/11/17 19:20 Red Blood Count 4.46, Mean Corpuscular Volume 84.8, Mean Corpuscular Hemoglobin 30.0, Mean Corpuscular Hemoglobin Concent 35.4, Mean Platelet Volume 10.7, Neutrophils (%) (Auto) 44.0, Lymphocytes (%) (Auto) 44.1, Monocytes (%) (Auto) 7.3, Eosinophils (%) (Auto) 4.2, Basophils (%) (Auto) 0.2, Neutrophils # (Auto) 2.12, Lymphocytes # (Auto) 2.12, Monocytes # (Auto) 0.35, Eosinophils # (Auto) 0.20, Basophils # (Auto) 0.01 12/11/17 19:20 Test 12/11/17 19:04 12/11/17 19:20 Urine Color YELLOW Urine Appearance CLEAR (CLEAR) Urine pH 7.0 (4.5-7.5) Urine Specific [place] 1.006 (1.000-1.030) Urine Protein NEG (NEG) Urine Glucose (UA) NEG (NEG) Urine Ketones NEG (NEG) Urine Occult Blood TRACE (NEG) Urine Nitrite NEG (NEG) Urine Bilirubin NEG (NEG) Urine Urobilinogen NEG (NEG) Urine Leukocyte Esterase NEG (NEG) Urine WBC (Auto) 1-5 /hpf (0-5) Urine RBC (Auto) 0-4 /hpf (0-4) Urine Hyaline Casts (Auto) 1-5 /lpf (0-5) Urine Epithelial Cells (Auto) >30 /lpf (0-5) Urine Bacteria (Auto) NEG (NEG) Urine Test NEG (NEG) White Blood Count 4.81 K/uL (4.8-10.8) Red Blood Count 4.46 M/uL (4.2-5.4) Hemoglobin 13.4 g/dL (12.0-16.0) Hematocrit 37.8 % (37-47) Mean Corpuscular Volume 84.8 fL (80-100) Mean Corpuscular Hemoglobin 30.0 pg (25-34) Mean Corpuscular Hemoglobin Concent 35.4 g/dl (32-36) Platelet Count 164 K/uL (130-400) Mean Platelet Volume 10.7 fL (7.4-10.4) Neutrophils (%) (Auto) 44.0 % Lymphocytes (%) (Auto) 44.1 % Monocytes (%) (Auto) 7.3 % Eosinophils (%) (Auto) 4.2 % Basophils (%) (Auto) 0.2 % Neutrophils # (Auto) 2.12 K/uL (1.4-6.5) Lymphocytes # (Auto) 2.12 K/uL (1.2-3.4) Monocytes # (Auto) 0.35 K/uL (0.11-0.59) Eosinophils # (Auto) 0.20 K/uL (0-0.5) Basophils # (Auto) 0.01 K/uL (0-0.2) RDW Standard Deviation 37.8 fL (36.4-46.3) RDW Coefficient of Variation 12.3 % (11.5-14.5) Immature Granulocyte % (Auto) 0.2 % Immature Granulocyte # (Auto) 0.01 K/uL (0.00-0.02) Anion Gap 6.0 mmol/L (3-11) Est Creatinine Clear Calc Drug Dose 145.0 ml/min Estimated GFR () 143.9 Estimated GFR (Non- 124.2 BUN/Creatinine Ratio 13.7 (10-20) Calcium Level 8.5 mg/dl (8.5-10.1) Total Bilirubin 0.4 mg/dl (0.2-1) Direct Bilirubin 0.1 mg/dl (0-0.2) Aspartate Amino Transf (AST/SGOT) 17 U/L (15-37) Alanine Aminotransferase (ALT/SGPT) 20 U/L (12-78) Alkaline Phosphatase 81 U/L (45-117) Total Protein 6.9 gm/dl (6.4-8.2) Albumin 3.8 gm/dl (3.4-5.0) Medications Administered Medications (Trade) Dose Ordered Sig/Margaret Route Start Time Stop Time Status Last Admin Dose Admin Sodium Chloride 1,000 ml @ 150 mls/hr [id number] STAT IV 12/11/17 18:54 12/11/17 22:28 DC 12/11/17 19:23 150 MLS/HR Ondansetron HCl (Zofran Inj) 4 mg NOW STAT IV 12/11/17 19:00 12/11/17 19:03 DC 12/11/17 19:21 4 MG Morphine Sulfate (MoRPHine SULFATE INJ) 4 mg NOW STAT IV 12/11/17 19:00 12/11/17 19:03 DC 12/11/17 19:22 4 MG Ketorolac Tromethamine (Toradol Inj) 30 mg NOW STAT IV 12/11/17 21:50 12/11/17 21:51 DC 12/11/17 22:08 30 MG Medical Decision Differential diagnosis: Etiologies such as appendicitis, diverticulitis, PUD, biliary pathology, UTI, pancreatitis, obstruction, mesenteric ischemia, aortic pathology, infections, inflammatory bowel disease, renal colic, as well as others were entertained. This patient was evaluated and appeared to be in no significant distress. Physical examination is consistent with a right lower quadrant tenderness. There is no rebound or guarding. IV access was obtained and laboratory work was drawn. Patient was hydrated with normal saline solution, given IV morphine and Zofran for her discomfort. Patient has a normal white blood cell count. UA is negative, is negative. Ultrasound of the pelvis was performed and reveals a right ovarian cyst, likely physiologic. Ultrasound of the abdomen for the appendix was nondiagnostic. CT scan of the abdomen pelvis was performed and follow-up and is negative for acute appendicitis. Patient was informed of the findings. She continued to have some discomfort and was given Toradol 30 mg IV. She was encouraged to follow-up with her PCP and [facility] as needed. She will return to the ED for worsening of symptoms or any medical concerns. Medication Reconcilliation Current Medication List: was personally reviewed by me Blood Pressure Screening Patient's blood pressure: Normal blood pressure Impression Primary Impression: Right lower quadrant abdominal pain Additional Impression: Ovarian cyst Departure Information Dispostion Home / Self-Care Condition GOOD Forms HOME CARE DOCUMENTATION FORM, IMPORTANT VISIT INFORMATION Patient Instructions My [facility] Additional Instructions Diagnosis: Right lower quadrant abdominal pain, ovarian cyst Ibuprofen 600 mg every 6 hours as needed for pain with food. Drink plenty of clear fluids. Follow-up with your physician for reevaluation. If symptoms continue follow-up with [facility] may be helpful. The ovarian cyst is likely normal as part of your menstrual cycle. Return to the emergency department for worsening of symptoms or any medical concerns. Problem Qualifiers
== END 2017-12-11 22:18 | disposition home or self-care (01) ==
LOC: C.EDB 18:49 → C.EDC 22:18
DX: R10.31 Right lower quadrant pain (principal); N83.201 Unspecified ovarian cyst, right side; Z85.850 Personal history of malignant neoplasm of thyroid; Z79.899 Other long term (current) drug therapy; Z98.890 Other specified postprocedural states